=== PATIENT | female | born 1945 | race Caucasian/White ===

== ENCOUNTER 2018-01-13 08:41 | Emergency (ER) | payer OTHER ==
[~2018-01-13] VITALS: Ht 152.4 cm; Wt 90.7 kg
[~2018-01-13 08:41] MED LIST: GLIPIZIDE5 MG; LOSARTAN-HCTZ1 EAC1; METFORMIN HCL850 MG; MOTRIN800 MG PO; NEURONTIN300 MG; SYNTHROID100 MCG; ULTRACET PO
[2018-01-13] MEDS ORDERED: ASPIR 8181 MG (08:59)
[2018-01-13] MEDS ORDERED: LIPITOR20 MG (08:59)
== END 2018-01-13 14:31 | disposition home or self-care (01) ==
LOC: ER 08:41
DX: S00.83XA Contusion of other part of head, initial encounter (principal); S70.01XA Contusion of right hip, initial encounter; S80.01XA Contusion of right knee, initial encounter; S10.83XA Contusion of other specified part of neck, initial encounter; W18.39XA Other fall on same level, initial encounter; Y93.89 Activity, other specified; Y92.098 Other place in other non-institutional residence as the place of occurrence of the external cause; Y99.8 Other external cause status

== ENCOUNTER 2020-04-08 08:35 | Emergency (ER) | payer OTHER ==
[~2020-04-08] VITALS: Ht 152.4 cm; Wt 90.7 kg
[~2020-04-08 08:35] MED LIST changes: +ASPIR 8181 MG; +LIPITOR20 MG
[2020-04-08] MEDS ORDERED: PERCOCET 5-3251 EACH PO (13:58)
== END 2020-04-08 14:33 | disposition home or self-care (01) ==
LOC: ER 08:35
DX: M25.561 Pain in right knee (principal)

== ENCOUNTER 2020-04-10 09:46 | Emergency (ER) | payer OTHER ==
[~2020-04-10] VITALS: Ht 152.4 cm; Wt 90.7 kg
[~2020-04-10 09:46] MED LIST changes: +PERCOCET 5-3251 EACH PO
[2020-04-10] MEDS ORDERED: SINGULAIR4 MG (09:57)
[2020-04-10] MEDS ORDERED: CARDESARTAN (09:57)
[2020-04-10] MEDS ORDERED: ATORVASTATIN CA10 MG (09:58)
[2020-04-10] MEDS ORDERED: TENTRAL (09:58)
== END 2020-04-10 19:39 | disposition home or self-care (01) ==
LOC: ER 09:46
DX: L03.115 Cellulitis of right lower limb (principal); E11.9 Type 2 diabetes mellitus without complications